=== PATIENT | male | born 1965 | race Caucasian/White ===

== ENCOUNTER 2016-09-05 08:53 | Emergency (ER) | payer MEDICAID ==
[~2016-09-05] VITALS: Ht 185.4 cm; Wt 78.0 kg
[2016-09-05] MEDS ORDERED: SODIUM CHLORIDE 0.9% 1,000ML IVBOLUS ONE (09:30)
[2016-09-05] MEDS ORDERED: SODIUM CHLORIDE FLUSH 10ML SYR IVF ONE (09:30)
[2016-09-05] MEDS ORDERED: MAALOX/HYOSCYAMINE/LIDOCAINE 45 ML BOTTLE PO ONE (09:30)
[2016-09-05] MEDS ORDERED: MAALOX/HYOSCYAMINE/LIDOCAINE 45 ML BOTTLE ONE (09:44)
[2016-09-05 09:55] LABS: BLOOD UREA NITROGEN 14 mg/dL (7-18)
[2016-09-05 10:01] LABS: ASPARTATE AMINO TRANSFERASE 12 U/L (15-37); IS PT STATUS REG ER OR PRE ER? YES
[2016-09-05] MEDS ORDERED: HYDROcodone/APAP 5/325 TABLET ONE (10:09)
[2016-09-05] MEDS ORDERED: HYDROcodone/APAP 5/325 TABLET PO ONE (10:30)
[2016-09-05 11:11] VITALS: BP 116/87
== END 2016-09-05 11:14 | disposition home or self-care (01) ==
LOC: ED 11:08
DX: R07.89 Other chest pain (principal); R19.7 Diarrhea, unspecified
CPT/HCPCS: 36415; 71010; 80053; 83690; 84484; 85025; 93005; 96360; 99285; J7030

== ENCOUNTER 2016-09-24 08:28 | Emergency (ER) | payer MEDICAID ==
[~2016-09-24] VITALS: Ht 182.9 cm; Wt 76.2 kg
[2016-09-24 08:30] VITALS: BP 146/88
== END 2016-09-24 09:22 | disposition home or self-care (01) ==
LOC: ED 08:54
DX: J45.40 Moderate persistent asthma, uncomplicated (principal); I10 Essential (primary) hypertension; E11.65 Type 2 diabetes mellitus with hyperglycemia; J30.2 Other seasonal allergic rhinitis; M19.90 Unspecified osteoarthritis, unspecified site
CPT/HCPCS: 99283

== ENCOUNTER 2017-02-24 18:38 | Emergency (ER) | payer MEDICAID ==
[~2017-02-24] VITALS: Ht 182.9 cm; Wt 84.6 kg
[~2017-02-24 18:38] MED LIST: ALBU18HF INH; AMIT25TA PO; ASPI-496 PO; FEXO180T15 PO; FLUT9.9S INH; FLUT9.9S NS; METF500T4 PO; METO50TA82 PO; MONT10TA9 PO; OMEP-110 PO; SERT50TA5 PO; TAMS0.4C2 PO
[2017-02-24 18:59] VITALS: BP 153/85
[2017-02-24] MEDS ORDERED: HYDROcodone/APAP 5/325 TABLET PO ONE (20:30)
[2017-02-24] MEDS ORDERED: HYDROcodone/APAP 5/325 TABLET ONE (20:35)
== END 2017-02-24 20:54 | disposition home or self-care (01) ==
LOC: ED 20:48
DX: K01.1 Impacted teeth (principal); K02.9 Dental caries, unspecified; I10 Essential (primary) hypertension; E11.9 Type 2 diabetes mellitus without complications
CPT/HCPCS: 99283

== ENCOUNTER 2017-05-08 11:58 | Emergency (ER) | payer MEDICAID ==
[~2017-05-08] VITALS: Ht 182.9 cm; Wt 85.6 kg
[2017-05-08] MEDS ORDERED: SODIUM CHLORIDE FLUSH 10ML SYR IVF ONE (13:00)
[2017-05-08] MEDS ORDERED: SODIUM CHLORIDE 0.9% 1,000ML IVBOLUS ONE (13:00)
[2017-05-08 13:02] LABS: BASOPHILS # (AUTO) 0.06 x10^3/uL (0-0.1); BASOPHILS % (AUTO) 1 % (0-1); EOSINOPHILS # (AUTO) 0.57 x10^3/uL (0-0.4); EOSINOPHILS % (AUTO) 6 % (1-7); LYMPHOCYTES # (AUTO) 3.06 x10^3/uL (1-3.4); LYMPHOCYTES % (AUTO) 33 % (22-44); MD NO; MEAN CORPUSCULAR HEMOGLOBIN 31.7 pg (27.5-34.5); MEAN CORPUSCULAR HGB CONC 34.3 g/dL (33.2-36.2); MEAN CORPUSCULAR VOLUME 92.4 fL (81-97); MEAN PLATELET VOLUME 8.8 fL (7.4-10.4); MONOCYTES # (AUTO) 0.42 x10^3/uL (0.2-0.8); MONOCYTES % (AUTO) 5 % (2-9); NEUTROPHILS # (AUTO) 5.11 x10^3/uL (1.8-6.8); NEUTROPHILS % (AUTO) 56 % (42-75); PLATELET COUNT 220 x10^3/uL (130-400); RED BLOOD COUNT 4.91 x10^6/uL (4.38-5.82); RED CELL DISTRIBUTION WIDTH 14.5 % (9.4-14.8)
[2017-05-08 13:14] LABS: ALANINE AMINOTRANSFERASE 26 U/L (12-78); ALBUMIN 3.7 g/dL (3.4-5.0); ANION GAP 8 mmol/L (5-15); CHLORIDE 104 mmol/L (98-107); CREATININE 0.69 mg/dL (0.7-1.3)
[2017-05-08 13:17] LABS: ALKALINE PHOSPHATASE 111 U/L (45-117); BILIRUBIN,TOTAL 0.3 mg/dL (0.2-1.0); TOTAL PROTEIN 7.6 g/dL (6.4-8.2)
[2017-05-08 14:30] VITALS: BP 136/95
[2017-05-08] MEDS ORDERED: OMNIPAQUE 350 MG/ML, 100ML BOTTLE ONE (16:51)
[2017-05-08] MEDS ORDERED: MORPHINE SULFATE 4 MG/ML, 1ML IVPush PRN (18:00)
[2017-05-08] MEDS ORDERED: ONDANSETRON 2MG/ML, 2ML IVPush ONE (18:00)
[2017-05-08] MEDS ORDERED: MORPHINE SULFATE 4 MG/ML, 1ML ONE (18:01)
[2017-05-08] MEDS ORDERED: ONDANSETRON 2MG/ML, 2ML ONE (18:01)
== END 2017-05-08 18:28 | disposition home or self-care (01) ==
LOC: ED 17:15
DX: R10.31 Right lower quadrant pain (principal); F17.210 Nicotine dependence, cigarettes, uncomplicated; I10 Essential (primary) hypertension; E11.9 Type 2 diabetes mellitus without complications; J45.909 Unspecified asthma, uncomplicated; R79.9 Abnormal finding of blood chemistry, unspecified
CPT/HCPCS: 36415; 74177; 80053; 82962; 83690; 85025; 96374; 96375; 99285; J2405; Q9967

== ENCOUNTER 2017-10-16 16:47 | Emergency (ER) | payer MEDICAID ==
[~2017-10-16] VITALS: Ht 177.8 cm; Wt 79.7 kg
[~2017-10-16 16:47] MED LIST changes: -METF500T4 PO; +METF500T5 PO
[2017-10-16 17:07] VITALS: BP 130/75
== END 2017-10-16 18:42 | disposition home or self-care (01) ==
LOC: ED 18:30
DX: R23.4 Changes in skin texture (principal); I10 Essential (primary) hypertension; J45.909 Unspecified asthma, uncomplicated; E11.9 Type 2 diabetes mellitus without complications
CPT/HCPCS: 99281

== ENCOUNTER 2017-12-24 15:32 | Emergency (ER) | payer MEDICAID ==
[~2017-12-24] VITALS: Ht 182.9 cm; Wt 71.3 kg
[~2017-12-24 15:32] MED LIST changes: +METF500T17 PO; -METF500T5 PO
[2017-12-24 15:46] VITALS: BP 145/78
[2017-12-24] MEDS ORDERED: HYDROcodone/APAP 5/325 TABLET PO STA (15:59)
[2017-12-24] MEDS ORDERED: HYDROcodone/APAP 5/325 TABLET ONE (16:05)
== END 2017-12-24 16:45 | disposition home or self-care (01) ==
LOC: ED 16:20
DX: S63.635A Sprain of interphalangeal joint of left ring finger, initial encounter (principal); M19.90 Unspecified osteoarthritis, unspecified site; J45.909 Unspecified asthma, uncomplicated; E11.9 Type 2 diabetes mellitus without complications; I10 Essential (primary) hypertension; F17.200 Nicotine dependence, unspecified, uncomplicated; W18.30XA Fall on same level, unspecified, initial encounter; Y99.8 Other external cause status; Y93.89 Activity, other specified; Y92.009 Unspecified place in unspecified non-institutional (private) residence as the place of occurrence of the external cause
CPT/HCPCS: 82962; 99284